=== PATIENT | male | born 1950 | race African-American/Black ===

== ENCOUNTER 2016-08-20 14:10 | Emergency (ER) | payer OTHER ==
[~2016-08-20] VITALS: Ht 182.9 cm; Wt 85.0 kg
[~2016-08-20 14:10] MED LIST: LORT5TAB PO; ZOCO40TA PO
[2016-08-20 14:13] VITALS: BP 147/88; PULSE 60; RESP 16; TEMP 97.8; O2SAT 99
[2016-08-20 14:40] VITALS: BP 147/75; PULSE 53; RESP 17; TEMP 98; O2SAT 97
[2016-08-20] MEDS ORDERED: SIMV40TA PO (14:40)
[2016-08-20] MEDS ORDERED: TRAM50TA PO (14:40)
[2016-08-20] MEDS ORDERED: VITA400C28 (14:40)
--- NOTE | 2016-08-20 14:41 | PD ---
HPI Chief Complaint: Skin Problem Time Seen by Provider: 14:41 Travel History International Travel<30 days: No Contact w/Intl Traveler<30days: No Traveled to known affect area: No History of Present Illness HPI 66-year-old male presents for his department for evaluation a laceration is dorsal aspect of his left fourth digit. Patient states that he was taking of stress at work when he cut it on glass. Patient denies any significant pain. No limitations in range of motion alterations in sensation. He is not up-to- date on his tetanus vaccination. He has no other symptoms to report. PFSH Past Medical History Medical History: Denies Significant Hx Cancer: No Diabetes: No Glaucoma: No Hepatitis: No Hiatal Hernia: No Hypertension: No Thyroid Disease: No Past Surgical History Genitourinary Surgery: Yes (LEFT NEPHRECTOMY FOR KIDNEY DONATION) Pacemaker: No Social History Alcohol Use: No Tobacco Use: No Allergies-Medications (Allergen,Severity, Reaction): Coded Allergies: No Known Allergies (Verified , 08/20/16) Reported Meds & Prescriptions Reported Meds & Active Scripts Active Keflex (Cephalexin) 500 Mg Cap 500 Mg PO Q6H 5 Days Reported Vitamin D (Cholecalciferol) 400 Unit Cap Tramadol (Tramadol HCl) 50 Mg Tab 50 Mg PO Q4H PRN Simvastatin 40 Mg Tab 40 Mg PO HS Review of Systems Except as stated in HPI: all other systems reviewed are Neg Physical Exam Narrative GENERAL: Well-nourished, well-developed male patient in no acute distress SKIN: Focused skin assessment warm/dry. 1 cm well approximated superficial laceration on the dorsal aspect of the left 4th digit. HEAD: Normocephalic. EYES: No scleral icterus. No injection or drainage. NECK: Supple, trachea midline. No JVD or lymphadenopathy. CARDIOVASCULAR: Regular rate and rhythm without murmurs, gallops, or rubs. RESPIRATORY: Breath sounds equal bilaterally. No accessory muscle use. MUSCULOSKELETAL: No cyanosis, or edema. BACK: Nontender without obvious deformity. No CVA tenderness. Data Data Last Documented VS Vital Signs Date Time Temp Pulse Resp B/P Pulse Ox O2 Delivery O2 Flow Rate FiO2 08/20/16 14:40 98.0 53 17 147/75 97 Room Air Orders Tetanus/Diphtheria Tox Adult (Tetanus/Di (08/20/16 15:00) MDM Medical Decision Making Medical Screen Exam Complete: Yes Emergency Medical Condition: Yes Medical Record Reviewed: Yes Differential Diagnosis Laceration superficial versus deep versus abrasion versus avulsion Narrative Course 66-year-old male presents to emergency room for evaluation a laceration on the dorsal aspect of his left fourth digit. This is superficial, well approximated. It is not bleeding. It is cleansed and a Steri-Strip is placed over. I counseled the patient on care.. He Is Unable to Take His Layering off and This Has Been Not New. He States He Has Never Been Able to Take It off. I Advised That He Worked Remove It and Offered to Cut It off Here but He Refused This. Patient Agrees to Return Immediately with Any Acute Worsening Symptoms. Diagnosis Primary Impression: Laceration of left ring finger Qualified Code: S61.215A - Laceration of left ring finger without foreign body without damage to nail, initial encounter Referrals: Primary Care Physician Patient Instructions: Finger Laceration (ED), General Instructions Additional Instructions: Keep the area clean and dry until completely healed No ointment to the area Do not do dishes until completely healed Follow-up with her primary care provider Return immediately with any acute worsening symptoms Med/Other Pt SpecificInfo: Prescription(s) given Scripts Cephalexin (Keflex)500 Mg [id number] Mg PO Q6H 5 Days Ref 0 Prov:Brinda Palomo 08/20/16 Disposition: 01 DISCHARGE HOME Condition: Stable Brinda Palomo Aug 20, 2016 14:41
[2016-08-20] MEDS ORDERED: CEPH-460 PO (14:56)
[2016-08-20] MEDS ORDERED: TETANUS/DIPHTHERIA TOXOID ADULT 0.5 ML VIAL IM ONE (15:00)
== END 2016-08-20 15:39 | disposition home or self-care (01) ==
LOC: NEPE 14:10
DX: S61.215A Laceration without foreign body of left ring finger without damage to nail, initial encounter (principal); Z23 Encounter for immunization; W25.XXXA Contact with sharp glass, initial encounter
CPT/HCPCS: 90471; 90714